=== PATIENT | male | born 1995 | race Caucasian/White ===

== ENCOUNTER 2019-09-16 03:42 | Emergency (ER) | payer OTHER ==
[~2019-09-16] VITALS: Ht 177.8 cm; Wt 77.3 kg
[2019-09-16 03:50] VITALS: BP 141/98; TEMP 97.6
[2019-09-16 04:52] VITALS: PULSE 97
== END 2019-09-16 04:52 | disposition home or self-care (01) ==
LOC: COL.ER 03:42
DX: M25.512 Pain in left shoulder (principal); M25.511 Pain in right shoulder